=== PATIENT | female | born 1965 | race Caucasian/White ===

== ENCOUNTER → 2017-09-17 16:17 | Outpatient (CLI) | payer OTHER, SELFPAY ==
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
== END ==
PROVIDERS: PCP Family Medicine; Visit Provider Family Medicine
DX: M25.512 Pain in left shoulder (principal); M89.8X1 Other specified disorders of bone, shoulder
CPT/HCPCS: 73010; 73030

== ENCOUNTER → 2017-10-19 08:54 | Outpatient (POV) | payer OTHER, SELFPAY ==
[2017-10-19 09:08] VITALS: BP 168/76; PULSE 68; RESP 20; O2SAT 99; BMI 25.8
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
== END ==
PROVIDERS: PCP Family Medicine; Visit Provider Clinical Nurse Specialist Family Health
DX: M79.1 Myalgia (principal)
CPT/HCPCS: 99202

== ENCOUNTER → 2017-12-13 09:05 | Outpatient (POV) | payer OTHER, SELFPAY ==
[2017-12-13 09:11] VITALS: BP 147/81; PULSE 81; RESP 18; TEMP 36.6; O2SAT 99; BMI 25.8
--- NOTE | 2017-12-13 09:48 | HMH.PAINSOAP ---
[facility] Pain Management SOAP Note Subjective:: patient is a pleasant 52-year-old white female who presents today for follow-up after recent trigger point injections. Patient states that she did not get much relief from these. States most of her pain today is in her left trapezius. Patient does have palpable trigger points in this location. Patient states the Flexeril did not help her. Patient is not currently on any pain medication or muscle relaxers. Patient's tried and failed anti-inflammatories. Patient and I had a long discussion about medication and injection therapies. I believe it would be beneficial to find a care that includes both. Patient rates her pain a 6 out of 10 today. Patient still works full-time. ROS General: no recent weight change, no fever, no sleep disturbances Respiratory: no cough, no shortness of air, no recurring pulmonary infections Cardiovascular/Peripheral Vascular: No chest pain, No palpitations, no edema, no shortness of breath. Gastrointestinal: no incontinence, normal bowel movements reported Genitourinary: no incontinence Musculoskeletal: Myofascial pain Psychiatric: normal mood/ affect, [denies depression], [denies anxiety] Neurological: [denies weakness in extremities], [denies balance issues] Objective:: Physical Exam General: Alert and oriented x3, no acute distress, pleasant and cooperative, [on room air] Lungs: Resps E/U, Symmetrical chest expansion, Eyes: PERRL Musculoskeletal: Mobile trigger points in the left trapezius, Deep tendon reflexes normal, strength in upper and lower extremities [5/5], normal gait noted Neurological: speech clear, 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 3 times daily. I discussed with the patient regarding side effects and titration. Patient is going to be starting at 100 mg 1 p.o. nightly for a week and slowly titrate up. We will also start the patient on Robaxin 500 mg's 1 p.o. 4 times daily as needed. Patient has been educated on the side effects and is going to call the office if she has any issues. I encouraged the patient to take this at a time where she is not working. Also set of trigger point injections for the left trapezius I believe that this would be beneficial in combination with the medication. This note was dictated using voice recognition software and may contain errors or omissions
--- NOTE | 2017-12-13 09:53 | P.CONS_ITS ---
[facility] Pain Management SOAP Note Subjective:: patient is a pleasant 52-year-old white female who presents today for follow-up after recent trigger point injections. Patient states that she did not get much relief from these. States most of her pain today is in her left trapezius. Patient does have palpable trigger points in this location. Patient states the Flexeril did not help her. Patient is not currently on any pain medication or muscle relaxers. Patient's tried and failed anti- inflammatories. Patient and I had a long discussion about medication and injection therapies. I believe it would be beneficial to find a care that includes both. Patient rates her pain a 6 out of 10 today. Patient still works full-time. ROS General: no recent weight change, no fever, no sleep disturbances Respiratory: no cough, no shortness of air, no recurring pulmonary infections Cardiovascular/Peripheral Vascular: No chest pain, No palpitations, no edema, no shortness of breath. Gastrointestinal: no incontinence, normal bowel movements reported Genitourinary: no incontinence Musculoskeletal: Myofascial pain Psychiatric: normal mood/ affect, [denies depression], [denies anxiety] Neurological: [denies weakness in extremities], [denies balance issues] Objective:: Physical Exam General: Alert and oriented x3, no acute distress, pleasant and cooperative, [ on room air] Lungs: Resps E/U, Symmetrical chest expansion, Eyes: PERRL Musculoskeletal: Mobile trigger points in the left trapezius, Deep tendon reflexes normal, strength in upper and lower extremities [5/5], normal gait noted Neurological: speech clear, metal checker 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 3 times daily. I discussed with the patient regarding side effects and titration. Patient is going to be starting at 100 mg 1 p.o. nightly for a week and slowly titrate up. We will also start the patient on Robaxin 500 mg's 1 p.o. 4 times daily as needed. Patient has been educated on the side effects and is going to call the office if she has any issues. I encouraged the patient to take this at a time where she is not working. Also set of trigger point injections for the left trapezius I believe that this would be beneficial in combination with the medication. This note was dictated using voice recognition software and may contain errors or omissions
--- NOTE | 2017-12-13 16:12 | PC.NURSE ---
called in Rx for Robaxin 500mg QIDPrn and Gabapentin 100mg TID with no refills
== END ==
PROVIDERS: PCP Family Medicine; Visit Provider Clinical Nurse Specialist Family Health
DX: M79.1 Myalgia (principal)
CPT/HCPCS: 99212

== ENCOUNTER → 2018-02-15 09:20 | Outpatient (POV) | payer OTHER, SELFPAY ==
[2018-02-15 09:26] VITALS: BP 138/82; PULSE 73; RESP 18; O2SAT 98; BMI 25.1
--- NOTE | 2018-02-15 09:37 | P.CONS_ITS ---
[facility] Pain Management SOAP Note Subjective:: Is a pleasant 52-year-old white female who presents today for follow-up after left upper trapezius trigger point injections. Patient states she is doing extremely well she rates her pain 80% improved. Patient would like one more round of trigger points in order to get full relief. Patient rates her pain a 3 out of 10 today. Mostly in the left upper trapezius area. Patient is continuing to work full-time and doing quite well. ROS General: no recent weight change, no fever, no sleep disturbances Respiratory: no cough, no shortness of air, no recurring pulmonary infections Cardiovascular/Peripheral Vascular: No chest pain, No palpitations, no edema, no shortness of breath. Gastrointestinal: no incontinence, normal bowel movements reported Genitourinary: no incontinence Musculoskeletal: Myofascial pain Psychiatric: normal mood/ affect Neurological: [denies weakness in extremities], [denies balance issues] Objective:: Physical Exam General: Alert and oriented x3, no acute distress, pleasant and cooperative, [ on room air] Lungs: Resps E/U, Symmetrical chest expansion, Eyes: PERRL Musculoskeletal: Palpable trigger points left upper trapezius area, deep tendon reflexes normal, strength in upper and lower extremities [5/5], normal gait noted Neurological: speech clear, 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 I believe that this would be beneficial given the efficacy of the last round of injections. I will follow-up with the patient after this and reassess her symptoms at that time. This note was dictated using voice recognition software and may contain errors or omissions
== END ==
PROVIDERS: PCP Family Medicine; Visit Provider Clinical Nurse Specialist Family Health
DX: M79.1 Myalgia (principal)
CPT/HCPCS: 99212

== ENCOUNTER → 2018-03-22 10:30 | Outpatient (POV) | payer OTHER, SELFPAY ==
[2018-03-22 10:51] VITALS: BP 131/80; PULSE 65; RESP 18; O2SAT 98; BMI 24.7
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
== END ==
PROVIDERS: PCP Family Medicine; Visit Provider Clinical Nurse Specialist Family Health
DX: M79.1 Myalgia (principal)
CPT/HCPCS: 99213

== ENCOUNTER → 2018-03-31 10:57 | Outpatient (POV) | payer OTHER, SELFPAY | PROVIDERS: Visit Provider Dentist | DX: Z00.00 Encounter for general adult medical examination without abnormal findings (principal) ==

== ENCOUNTER → 2018-04-04 12:50 | Outpatient (POV) | payer OTHER, SELFPAY ==
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
[2018-04-04 13:27] VITALS: BP 138/76; PULSE 70; RESP 18; O2SAT 98; BMI 24.7
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
== END ==
PROVIDERS: Visit Provider Clinical Nurse Specialist Family Health
DX: M79.1 Myalgia (principal)
CPT/HCPCS: 99213

== ENCOUNTER → 2020-11-22 08:09 | Outpatient (CLI) | payer OTHER, SELFPAY ==
[2020-11-22 08:37] LABS: Basophils # 0.1 K/mm3 (0-0.2); Basophils % 0.9 % (0.1-2.0); Eosinophils # 0.2 K/mm3 (0.0-0.4); Eosinophils % 1.8 % (0.1-12.0); Hematocrit 43.7 % (37.0-47.0); Hemoglobin 14.3 g/dL (12.2-16.2); Lymphocytes # 3.2 K/mm3 (0.7-4.5); Lymphocytes % 38.2 % (10-50); Mean Corpuscular HGB Conc 32.8 g/dL (31.8-35.4); Mean Corpuscular Volume 97.4 fl (81-99); Mean Platelet Volume 7.9 fl (7.4-10.4); Monocytes # 0.6 K/mm3 (0.1-1.0); Neutrophils # 4.4 K/mm3 (1.8-7.8); Neutrophils % 52.2 % (37.0-80.0); Platelet Count 246 K/mm3 (142-424); Red Blood Count 4.48 M/mm3 (4.20-5.40); White Blood Count 8.4 K/mm3 (4.8-10.8)
[2020-11-22 09:05] LABS: Chloride 108 mmol/L (98-107)
[2020-11-22 09:06] LABS: Potassium 4.7 mmoL/L (3.5-5.1); Sodium 140 mmol/L (136-145)
[2020-11-22 09:08] LABS: Alanine Aminotransferase 7 U/L (12-78); Albumin Level 4.4 g/dl (3.5-5.0); Albumin/Globulin Ratio 1.6 (1.1-1.8); Alkaline Phosphatase 72 U/L (38-126); Anion Gap 11.7 mEq/L (5-15); Aspartate Amino Transferase 17 U/L (14-36); Bilirubin,Total 0.5 mg/dl (0.2-1.3); Blood Urea Nitrogen 13 mg/dl (7-17); Carbon Dioxide 25 mmol/L (22.0-30.0); Cholesterol 233 mg/dl (140-200); Estimated Glomerular Filt Rate 74 ml/min (>60); GFR (African American) 90 ML/MIN (>60); Globulin 2.7 g/dL (1.3-3.2); Total Protein,Serum 7.1 g/dl (6.3-8.2); Triglycerides 107 mg/dl (30-150); VLDL Cholesterol 21 mg/dL (0-40)
[2020-11-22 09:09] LABS: Calcium 9.9 mg/dl (8.4-10.2); Chol/HDL Ratio 5.7 (1-3.5); Glucose 96 mg/dl (74-100); HDL Cholesterol 41 mg/dl (40-60)
[2020-11-22 09:38] LABS: Thyroid Stimulating Hormone 2.73 uIU/mL (0.465-4.68)
== END ==
PROVIDERS: Visit Provider Family Medicine
DX: G43.909 Migraine, unspecified, not intractable, without status migrainosus (principal)
CPT/HCPCS: 36415; 80053; 80061; 84443; 85025

== ENCOUNTER 2021-05-12 17:49 | Emergency (ER) | payer OTHER, SELFPAY ==
[2021-05-12 18:50] VITALS: BP 180/88; PULSE 78; RESP 20; TEMP 36.6; O2SAT 100; BMI 21.9
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
--- NOTE | 2021-05-12 19:51 | HMH.EDUTC ---
[facility] [place] Clinical Impression: Instability of right knee joint, Effusion, right knee Right knee pain Qualifiers: Chronicity: acute Qualified Code(s): M25.561 - Pain in right knee Disposition: Home, Self-Care Condition on Discharge: Good Instructions: How to Use Crutches, Knee Sprain, DI for Knee Sprain, How to Use a Knee Immobilizer Additional Instructions: Rest the extremity, apply ice for 15 minutes as tolerated three or four times per day, Elevate the extremity as tolerated while you are resting. Take ibuprofen for pain. I sent in a prescription to your pharmacy. Follow up with Dr. Thomas (orthopedics). I put in a referral but you need to call his office and schedule an appointment. Follow up with your regular doctor. GO TO THE ER FOR ANY WORSENING SYMPTOMS Prescriptions: Ibuprofen [Ibuprofen 600mg Tablet] 600 mg PO Q6HP PRN #30 tab PRN Reason: Mild Pain Transmission Status: Received by [id number] Referrals: Ochoa Levine MD [Primary Care Provider] - Forms: Work/School Release Time of Disposition: 19:57 Medical Decision Making - Medical Records Medical records reviewed: No: I reviewed the patient's medical records. - Massimo Inquiry Pt receiving controlled substance: No Vital Signs: 05/12/21 18:50 05/12/21 20:04 Temperature 97.9 F 97.9 F Temperature Source Oral Pulse Rate 78 Pulse Rate [Left Brachial] 78 Respiratory Rate 20 20 Blood Pressure 180/88 H Blood Pressure [Left Arm] 180/88 H Blood Pressure Mean [Left Arm] 118 Blood Pressure Source [Left Arm] Automatic Cuff Blood Pressure Position [Left Arm] Sitting 02 Sat by Pulse Oximetry 100 Oxygen Delivery Method Room Air - Radiology Data #1 Image(s): Knee Image Reviewed: Yes I reviewed the patient's radiology image, Yes I have reviewed radiologist's interpretation Preliminary Findings: No Fracture Seen PROCEDURE INFORMATION: Exam: XR Right Knee Exam date and time: 05/12/2021 7:04 PM Age: 55 years old Clinical indication: Injury or trauma; Fall; Blunt trauma; Knee; Right; Additional info: Fell TECHNIQUE: Imaging protocol: XR Right knee. Views: 3 views. COMPARISON: No relevant prior studies available. FINDINGS: Bones/joints: No acute fracture or dislocation. Soft tissues: Anteromedial soft tissue edema. IMPRESSION: 1. No acute fracture or dislocation. 2. Anteromedial soft tissue edema. [facility] [place] HPI - General Stated complaint: WC 05/12/21 fall, rt knee pain Time Seen by Provider: 05/12/21 18:55 Mode of Arrival: Ambulatory Source of Information: Patient Limitations: No Limitations Description of Symptoms (Recalled from Triage Doc. by RN): PATIENT C/O RIGHT KNEE PAIN AFTER SLIPPING ON WET AREA AND FALLING IN COOLER AT WORK AT [employer] THIS AM HEENT Symptoms (Recalled from RN notes): No Resp Symptoms (Recalled from RN notes): No Skin Symptoms (Recalled from RN notes): No MS Symptoms (Recalled from RN notes): Yes Functional Status (Recalled from RN notes): WNL - History of Present Illness Provider Complaint: She was at her work today when she fell. She was walking in the cooler with a heavy crate of drinks when she stepped on a wet spot on the floor. This caused her right foot to slip behind her and she came down on her right knee. This also hyperflexed her left knee. Since then she has had right knee pain and swelling. She also hit her left elbow and left knee, but she states these are not hurting her. Walking and bearing weight on her right knee makes her pain much worse. She also states that her right knee has felt unstable since her fall. She denies having any knee pain or issues before she fell. - Related Data Home Medications Medication Instructions Recorded Confirmed Aspirin [Aspirin 81mg EC Tab] 81 mg PO DAILY 10/19/17 09/18/19 Previous Rx's Medication Instructions Rec
[2021-05-12 20:04] VITALS: BP 180/88; PULSE 78; RESP 20; TEMP 36.6; O2SAT 100
== END 2021-05-12 20:09 | disposition home or self-care (01) ==
PROVIDERS: Emergency Provider Nurse Practitioner Family; PCP Family Medicine
DX: M25.461 Effusion, right knee (principal); R26.89 Other abnormalities of gait and mobility; W01.0XXA Fall on same level from slipping, tripping and stumbling without subsequent striking against object, initial encounter; Y92.69 Other specified industrial and construction area as the place of occurrence of the external cause; Y99.0 Civilian activity done for income or pay; F17.210 Nicotine dependence, cigarettes, uncomplicated
CPT/HCPCS: 29505; 73562; 99202; G0463

== ENCOUNTER 2021-05-23 15:28 | Outpatient (RCR) | payer OTHER, SELFPAY | END 2021-05-23 16:27 | disposition home or self-care (01) | LOC: PT 15:28 | PROVIDERS: Visit Provider Orthopaedic Surgery | DX: S83.511A Sprain of anterior cruciate ligament of right knee, initial encounter (principal); M25.461 Effusion, right knee | CPT/HCPCS: 97760 ==

== ENCOUNTER 2021-09-09 16:01 | Outpatient (RCR) | payer OTHER, SELFPAY | END 2021-09-09 17:00 | disposition home or self-care (01) | LOC: PT 16:01 | PROVIDERS: Visit Provider Orthopaedic Surgery | DX: M17.11 Unilateral primary osteoarthritis, right knee (principal) ==

== ENCOUNTER 2021-10-03 13:17 | Outpatient (RCR) | payer OTHER, SELFPAY ==
--- NOTE | 2021-10-03 14:07 | HMH.PTOPEV ---
PT Outpatient Evaluation Rehab PT Outpatient Evaluation Start: 10/03/21 13:28 Freq: Status: Active Protocol: Document 10/03/21 13:57 TJ (Rec: 10/03/21 14:07 TJ [id number]) Electronically Signed By Lincoln Bal, PT 10/03/21 13:57 Outpatient Therapy Subjective History Subjective History Pt reports injury to Right knee on 05/12/21. Pt reports falling while carrying a case of Natalia[employer], 'I slipped and fell in the cooler at work, my right knee connie buckled under me, and my left leg connie slid out in front.' Pt reports medial aspect right knee pain since injury, as well as swelling, stiffness, buckling episodes. Pt reports recent Xrayhas revealed OA, and 'I'm not sure what the MRI showed'. Chief Complaint Pain,Stiff,Swelling,Gives out/ Unstable,Weakness Symptom Type Ache,Sharp,Dull,Stabbing Symptoms Relieved By Rest/Positioning,Ice, Prescription Meds Symptoms Aggravated By Standing,Physical Activity, Walking Prior Functional Limitations None Current Functional Limitations Housework,Standing,Squatting, Walking,Stairs Symptom Description Constant but Variable Level of pain today (0-10) 5 Pain scale - at its best (0-10) 4 Pain scale - at its worst (0-10) 10 Hip/Knee Eval Gait Observation General Gait Pattern Observation Antalgic Gait Palpation Tenderness right Knee Palpation Finding Tenderness Knee Palpation Overall Comment 3/4 MCL, 3/4 medial jt line, 2 /4 medial popiteal space, 1/4 lateral jt line MMT Hip Flexion Strength Grade 4 Good Hip Abduction Strength Grade 4- Good- Hip Adduction Strength Grade 3+ Fair+ Hip Extension Strength Grade 4- Good- Hip External Rotation Strength Grade 4- Good- Hip Internal Rotation Strength Grade 4- Good- Knee Extension Strength Grade 4 Good Knee Flexion Strength Grade 4- Good- ROM Knee Flexion Active Range of Motion ( 0-124 degrees) Knee ROM Limitations Soft Tissue Tightness,Pain Special Tests Knee Valgus Stress Test Positive Right Knee Juanis Test Positive Right Outpatient Therapy Assessment Impairments Problems/Impairmments Palpation Tenderness,Impaired Range of Motion,Impaired
== END 2021-10-03 13:20 | disposition home or self-care (01) ==
LOC: PT 13:17
PROVIDERS: Visit Provider Orthopaedic Surgery
DX: M17.11 Unilateral primary osteoarthritis, right knee (principal)
CPT/HCPCS: 97163

== ENCOUNTER → 2022-03-12 17:57 | Outpatient (CLI) | payer OTHER, SELFPAY | PROVIDERS: PCP Family Medicine; Visit Provider Orthopaedic Surgery | DX: Z79.899 Other long term (current) drug therapy (principal) | CPT/HCPCS: 80305 ==

== ENCOUNTER → 2022-05-29 09:24 | Outpatient (CLI) | payer OTHER, SELFPAY ==
--- NOTE | 2022-05-29 09:36 | XR_ITS ---
FINAL REPORT CLINICAL HISTORY: knee pain..fall last year COMPARISON: 05/12/2021 FINDINGS: Right knee Three views were obtained. There is no acute fracture or dislocation. No joint effusion is identified. The joint spaces appear normal. No soft tissue abnormality is identified. IMPRESSION: No acute process. Reviewed, Interpreted and Dictated by Aman Mitchell III, MD Transcribed by Wendy Adame Authenticated and . [facility]
== END ==
PROVIDERS: PCP Family Medicine; Visit Provider Orthopaedic Surgery
DX: M25.561 Pain in right knee (principal)
CPT/HCPCS: 73562

== ENCOUNTER 2022-07-22 10:30 | Outpatient (RCR) | payer OTHER, SELFPAY ==
--- NOTE | 2022-06-17 15:49 | HMH.PTOPEV ---
PT Outpatient Evaluation Rehab PT Outpatient Evaluation Start: 06/17/22 15:32 Freq: Status: Active Protocol: Document 06/17/22 15:35 MARGARET (Rec: 06/17/22 15:49 PHORTHERESA [id number]) E-signed By Chase Gaytan, PT Outpatient Therapy Subjective History Subjective History This is the initial PT eval for Capri Santiago 56 yowf who presents with R knee pain x ~ 1 yr S/P fall at work. She reports RIVERA of L LE slipped out from under her and extended forward while her R knee was bent and caught under her body when she fell. She c /o pain on the medial and anterior R knee jt which is much worse after standin or walking for long periods. She states, When I'm at work standing on it all day long it really hurts bad and swells up. She reports delay in treatment due to problems with her worker's comp claim, but pain has remained mostly constant since initial injury. She reports no significant PMH. Chief Complaint Pain,Swelling Symptom Type Ache,Sharp Symptoms Relieved By Nothing Symptoms Aggravated By Standing,Walking Prior Functional Limitations None Current Functional Limitations Standing,Squatting,Walking Level of pain today (0-10) 4 Pain scale - at its worst (0-10) 10 Hip/Knee Eval Gait Observation General Gait Pattern Observation No Deviations/Normal Palpation Tenderness right Knee Palpation Finding Tenderness Knee Palpation Overall Comment med jt line, pat tendon, popliteal space MMT Hip Flexion Strength Grade 5 Normal Hip Abduction Strength Grade 5 Normal Hip Adduction Strength Grade 5 Normal Hip Extension Strength Grade 5 Normal Gluteus Arturo Strength Grade 5 Normal Hip External Rotation Strength Grade 5 Normal Hip Internal Rotation Strength Grade 5 Normal Knee Extension Strength Grade 5 Normal Knee Flexion Strength Grade 5 Normal ROM Knee Extension Active Range of Motion ( 0 degrees) Knee Flexion Active Range of Motion ( 0-137 degrees) Special Tests Hip Sindhu Test Negative Left,Negative Right Sciatic Nerve Tension Test
--- NOTE | 2022-07-20 15:46 | HMH.RHREAS ---
Rehab Reassessment Rehab OP Re-assessment Start: 07/20/22 15:41 Freq: Status: Active Protocol: Document 07/20/22 15:42 MARGARET (Rec: 07/20/22 15:46 PHORTHERESA [id number]) E-signed By Chase Gaytan, PT Rehab Re-assessment Subjective Subjective Pt reports pain at rest 3/10 in R medial knee, at worst 7/ 10. If I am up on it all day at work, it's a whole lot worse. Objective Objective Notes MMT and AROM of R LE remain WNL throughout as they wer on initial evaluation. TTP: / medial R knee jt line . Assessment Progress Assessment Progressing as Expected Assessment Notes Pt continues to show significant pain with prolonged standing or walking, but no problems with strength or ROM at this time. She also remains somewhat tender with palpation of the medial R knee joint. She has limited relief of pain with phonophoresis and iontophoresis. Patient goals met ST,3,[address],4 LT,2,3,4,5,6 Revised Goals none Plan Plan Continue per initial POC. Frequency of Therapy 2 x/wk Duration of therapy 4 wks Time and Billing Re-Eval Time 16 Re-Eval Billing Units 1 PHYSICIAN CERTIFICATION: I certify the specified therapy services for Capri Santiago are required, authorized, and reviewed every 30 days.
== END 2022-07-22 10:35 | disposition home or self-care (01) ==
LOC: PT 10:30
PROVIDERS: Visit Provider Orthopaedic Surgery
DX: M25.561 Pain in right knee (principal)
CPT/HCPCS: 97010; 97014; 97033; 97035; 97110; 97163; 97164; G0283

== ENCOUNTER → 2023-02-10 08:09 | Outpatient (CLI) | payer OTHER, SELFPAY ==
--- NOTE | 2023-02-10 08:15 | CT_ITS ---
FINAL REPORT TECHNIQUE: Axial images were obtained from the lung apex to the mid abdomen by computed tomography. This study was performed with techniques to keep radiation doses as low as reasonably achievable (ALARA). Individualized dose reduction techniques using automated exposure control or adjustment of mA and/or kV according to the patient's size were employed. CLINICAL HISTORY: TOBACCO USE, smoker 1 ppd x 30 years family hx of lung cancer FINDINGS: CHEST CT LOW DOSE CTDI vol (mGy): 2.90 DLP (mGy-cm): 98.73 There is no axillary adenopathy. There is no hilar or mediastinal adenopathy. The heart is normal in size. There is no pericardial or pleural effusion. There is mild scarring and mild emphysema. There are several small less than 5 mm pulmonary nodules. There is a 3 mm nodule in the superior segment of the right lower lobe well seen on image 26. There is a 3 mm nodule in the posterior right lower lobe well seen on image 51. Multiple calcified granulomas are identified. Limited images of the upper abdomen are unremarkable. IMPRESSION: Several pulmonary nodules. Lung RADS category 2. Recommend 12 month follow-up low-dose chest CT. Reviewed, Interpreted and Dictated by Aman Mitchell III, MD Transcribed by Wendy Adame Authenticated and [facility]
--- NOTE | 2023-02-10 08:15 | MM_ITS ---
PROCEDURE INFORMATION: Exam: MG Bilateral Screening 3D Mammography Exam date and time: 02/10/2023 8:08 AM Age: 57 years old Clinical indication: Screening. No family history of breast cancer. TECHNIQUE: Imaging protocol: Bilateral Screening tomosynthesis and 2D mammography including computer-aided detection (CAD) when performed. COMPARISON: No relevant prior studies available.If prior mammograms are provided, I am happy to add an addendum. FINDINGS: MAMMOGRAPHY: Breast composition: There are scattered areas of fibroglandular density. Mass: Scattered bilateral sub cm oval circumscribed masses. No dominant suspicious mass. Architectural distortion: None. Calcifications: No suspicious calcifications. Asymmetric density: None. Skin thickening: None. Axillary adenopathy: None. IMPRESSION: Scattered bilateral sub cm oval circumscribed masses considered benign on screening mammography. No mammographic evidence of malignancy. Annual screening is recommended unless otherwise clinically indicated. ASSESSMENT: BI-RADS Category 2: Benign
== END ==
PROVIDERS: PCP Family Medicine; Visit Provider Nurse Practitioner Family
DX: Z12.31 Encounter for screening mammogram for malignant neoplasm of breast (principal); Z87.891 Personal history of nicotine dependence; Z12.2 Encounter for screening for malignant neoplasm of respiratory organs
CPT/HCPCS: 71271; 77063; 77067

== ENCOUNTER 2024-03-08 09:44 | Outpatient (CLI) | payer OTHER, SELFPAY ==
--- NOTE | 2024-03-08 09:48 | CT_ITS ---
FINAL REPORT TECHNIQUE: Thin section axial images were obtained from the lung apices to the upper abdomen by computed tomography. Reformatted images were obtained and reviewed. This study was performed with techniques to keep radiation doses al low as reasonably achievable (ALARA). Individualized dose reduction techniques using automated exposure control or adjustment of mA and/or kV according to the patient's size were employed. CLINICAL HISTORY: HX OF NICOTINE current smoker 1ppd x30 years COMPARISON: 02/10/2023 FINDINGS: CHEST CT LOW DOSE 59-year-old female, current smoker, 20-xtxj-xbij history. CTDI vol (mGy): 2.9 DLP (mGy-cm): 96.38 There is no axillary adenopathy. There are multiple calcified right paratracheal and subcarinal and right hilar nodes present. The heart is normal in size. There is no pericardial or pleural effusion. There is mild emphysema and mild pulmonary scarring. Lung window images demonstrate a nodule, noncalcified, in the superior segment of the right lower lobe, measuring 3 mm, stable. There is a posterior right lower lobe nodule as well, 4 mm in size, best seen on image #51, essentially stable. No new focal nodules or masses are noted. Limited images of the upper abdomen are unremarkable. IMPRESSION: Lung-RADS category 2. Recommend 12 month follow up low dose chest CT. Reviewed, Interpreted and Dictated by Bandar Linda MD Transcribed by Terri Witt Authenticated and [facility]
== END 2024-03-08 23:59 | disposition home or self-care (01) ==
LOC: RAD 09:44
PROVIDERS: PCP Nurse Practitioner Family; Visit Provider Nurse Practitioner Family
DX: F17.210 Nicotine dependence, cigarettes, uncomplicated (principal)
CPT/HCPCS: 71271

== ENCOUNTER 2025-07-27 12:50 | Outpatient (CLI) | payer OTHER, SELFPAY ==
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
--- NOTE | 2025-07-27 12:51 | MM_ITS ---
PROCEDURE INFORMATION: Exam: MG Bilateral Screening 3D Mammography Exam date and time: 07/27/2025 12:57 PM Age: 60 years old Clinical indication: Screening examination TECHNIQUE: Imaging protocol: Bilateral Screening tomosynthesis and 2D mammography including computer-aided detection (CAD) when performed. COMPARISON: MG MM DIG SCREENING MAMM BI W/CAD 02/10/2023 8:08 AM FINDINGS: MAMMOGRAPHY: Breast composition: There are scattered areas of fibroglandular density. Mass: No suspicious masses. Architectural distortion: None. Calcifications: No suspicious calcifications. Asymmetric density: None. Skin thickening: None. Axillary adenopathy: None. IMPRESSION: No mammographic evidence of malignancy. Annual screening is recommended unless otherwise clinically indicated. ASSESSMENT: BI-RADS Category 1: Negative.
--- NOTE | 2025-07-27 12:51 | CT_ITS ---
FINAL REPORT CLINICAL HISTORY: smoker 1/2 ppd x 35 years COMPARISON: 03/08/2024 FINDINGS: CT CHEST LOW DOSE SCREENING HISTORY: Screening exam for lung cancer. 60-year-old male, current smoker, 11-ubtl-bqcw history. DOSE: CTDI vol: 2.90 mGy, DLP: 102.38 mGy*cm TECHNIQUE: Axial CT without IV contrast administration using low dose protocol. This study was performed with techniques to keep radiation doses as low as reasonably achievable, (ALARA). Individualized dose reduction techniques using automated exposure control or adjustment of mA and/or kV according to the patient's size were employed. No acute lung disease is present. There is a 2 mm right lower lobe nodule best seen on image #37 of series 4, stable. There is a 4 mm posterior right lower lobe nodule best seen on image #55, with probable central calcification. There is evidence of remote granulomatous disease. There is a lingular subpleural nodule best seen on image #45 measuring 4 mm in size, without definite calcification. No pleural or pericardial effusion is seen. No adenopathy or mass lesion is present. IMPRESSION: Stable nodules as described above. LUNG RADS CATEGORY 2 RECOMMENDATION: 12 month LDCT follow up Reviewed, Interpreted and Dictated by Benson Juárez MD Transcribed by Terri Witt Authenticated and [facility]
--- OUTSIDE RECORDS SUMMARY | 2025-07-27 12:53 | XMS_ITS | Encounter Summary ---
Author Organization [employer] ([place], [place], [place], [place], [place]) Address [address] [place] [address] Care Team Providers Care Miscellaneous Machine Operator Name Role Phone Unavailable Primary Care Provider Unavailabl e Encounter Details Date Type Department Care Team (Late st Contact Info) Description 09/18/2019 Transcribed Document [facility] Family Medicine [facility] [address] ProviderTami MD [address] [place] [address] Social History Tobacco Use Types Packs/Day Years Used Date Smoking Tobacco: Never Assessed Comments Unknown Sex and Gender Information Value Date Recorded Sex Assigned at Female 02/05/2022 4:56 PM CDT Legal Sex Female 6:56 PM CDT Gender Identity Female 02/05/2022 4:56 PM CDT Sexual Orientation Not on file documented as of this encounter Miscellaneous Notes * Cerner Conversion Note - Historical ProviderMD - 09/18/2019 8:35 PM 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
--- OUTSIDE RECORDS SUMMARY | 2025-07-27 12:53 | XMS_ITS | Encounter Summary ---
Author Organization [employer] ([place], [place], [place], [place], [place]) Address [address] [place] [address] Care Team Providers Care Licensed Sales Assistant Name Role Phone Unavailable Primary Care Provider Unavailabl e Encounter Details Date Type Department Care Team (Late st Contact Info) Description 09/18/2019 Transcribed Document [facility] Family Medicine [facility] [place] [address] ProviderTami MD [address] [place] [address] Social History Tobacco Use Types Packs/Day [...] Conversion Note - Historical ProviderMD - 09/18/2019 7:16 PM END USER SUPPORT SPECIALIST ED Assessment Entered On: 09/18/2019 19:37 EST Performed On: 09/18/2019 19:35 EST by Zackery Sanchez RN ED Quick Look Assessment Level of Consciousness : Alert, Awake Affect/Behavior : Appropriate, Calm Orientation : Oriented x 4 Zackery Sanchez RN - 09/18/2019 19:35 EST ED General-Functional Assess Information Obtained From : Patient Communication Barrier : None Primary Language : Salvadorean Any Spiritual/Cultural Needs or Requests : No Currently in Unsafe Situation : No Zackery Sanchez RN - 09/18/2019 19:35 EST Social Habits Smoking Status : Never (less than 100 in lifetime; none in last 30 days) Smokeless Tobacco Status : Never Desires Tobacco Cessation Calc : 0 Zackery Sanchez RN - 09/18/2019 19:35 EST Social History (As Of: 09/18/2019 19:37:38 EST) Neurologic ASMT, ED Neurologic Assessment WDL : WDL with exceptions (Comment: pt here c/o headache with left arm numbness and tingling equal strength bialterally no other deficit [Zackery Sanchez RN - 09/18/2019 19:35 EST] ) [place] Coma Scale Link : Open [facility] NIH Stroke Scale Link : Open Zackery Sanchez RN - 09/18/2019 19:35 EST Carolann Coma Carolann Best Motor Response : Obey commands Carolann Best Verbal Response : Oriented Carolann Eye Opening Response : Spontaneous [place] Coma Score : 15 Zackery Sanchez RN - 09/18/2019 19:35 EST NIH Stroke Scale *Q NIH Assessment Interval : Baseline Time of Assessment : 09/18/2019 19:36 EST NIH Level of Consciousness (1A) : Alert NIH LOC Questions (1B) : Answers both questions correctly NIH LOC Commands (1C) : Performs both tasks correctly NIH Best Gaze (2) : Normal NIH Facial Palsy (4) : Normal symmetrical movements NIH Motor Arm, Left (5A) : No drift NIH Motor Arm, Right (5B) : No drift NIH Motor Leg, Left (6A) : No drift NIH Motor Leg, Right (6B) : No drift NIH Sensory (8) : Aidg-ly-ucpbexyn sensory loss NIH Best Language (9) : No aphasia NIH Dysarthria (10) : Normal Extinction and Inattention (11) : No abnormality Zackery Sanchez RN - 09/18/2019 19:35 EST documented in this encounter Plan of Treatment Not on file documented as of this encounter Visit Diagnoses Not on filedocumented in this encounter
--- OUTSIDE RECORDS SUMMARY | 2025-07-27 12:53 | XMS_ITS | Encounter Summary ---
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 History source: Patient. Arrival mode: Private vehicle. History limitation: None. Additional information: Chief Complaint from Nursing Triage Note : Chief Complaint 09/18/2019 19:17 EST Chief Complaint pt c/o SCHWARTZ x 3 days on right side of head with numbness on left (resolved now), yesterday evening caused disorientation per spouse, N/V . History of Present Illness This is a 54-year-old female with a past medical history significant for complicated migraines with left-sided paresthesia/weakness who presents to the emergency department for migraine that is been ongoing since noon yesterday. She has had associated photophobia, nausea and vomiting which is typical for her migraine symptoms. Usually she can take Excedrin Migraine and the symptoms resolved, however that has not worked for her in this particular episode. She denies any recent illnesses, no fevers, urinary symptoms, no chest pain or abdominal pain. She did initially have some left-sided paresthesia, but that has resolved. Does not take any anticoagulation. She is previously followed in the past with her neurologist for these migraines, but her neurologist has retired and she has not obtained new consult. Not sudden in onset. Review of Systems Additional review of systems information: 10 point review of systems reviewed and negative except as stated in history of present illness . Health Status Allergies: Allergic Reactions (Selected) No Known Medication Allergies . Medications: (Selected) Inpatient Medications Ordered Benadryl: 50 mg, IV Push, 1-Time Reglan: 10 mg, IV Push, 1-Time Toradol: 30 mg, IV Push, 1-Time dexamethasone: 10 mg, IV Push, 1-Time , per nurse's notes. Immunizations: Per nurse's notes. Past Medical/ Family/ Social History Medical history Reviewed as documented in chart. Surgical history: Reviewed as documented in chart. Family history: Reviewed as documented in chart. Social history: Reviewed as documented in chart. Problem list: No qualifying data available , per nurse's notes. Physical Examination Vital Signs Vital Signs/Vital Measures 09/18/2019 19:17 EST Systolic Blood Pressure 133 mmHg Diastolic Blood Pressure 71 mmHg Temperature Source Oral Temperature Mode Fahrenheit Temperature, Fahrenheit 98.2 Deg F Clinical Temperature, C 36.8 Deg C Peripheral Pulse Rate 72 bpm Respiratory Rate 15 Breaths/Min Oxygen Saturation 98 % Oxygen Therapy Mode Room air . Per nurse's notes. General: Alert, no acute distress. Skin: Warm, dry. Head: Normocephalic. Neck: Supple. Eye: Pupils are equal, round and reactive to light, extraocular movements are intact. Ears, nose, mouth and throat: Oral mucosa moist. Cardiovascular: Regular rate and rhythm, No murmur. Respiratory: Lungs are clear to auscultation, respirations are non-labored, breath sounds are equal. Gastrointestinal: Soft, Nontender, Non distended. Neurological: Alert and oriented to person, place, time, and situation, No focal neurological deficit observed, normal speech observed, normal coordination observed. Psychiatric: Cooperative. Medical Decision Making Documents reviewed: Emergency department nurses' notes, prior records. Notes: Exam, history, evaluation is inconsistent with emergent causes of headache such as CVA, subarachnoid hemorrhage, acute intracranial infection/abscess, meningitis, encephalitis, mass, trauma. Patient is feeling much better with migraine cocktail here. Given strict return precautions and discharged home. Patient is alert and oriented, expresses clear understanding and willingness to adhere to plan, return precautions.. Impression and Plan Diagnosis Headache - Discharge, Medical Plan Condition: Stable. Disposition: Discharged Admit/Transfer/Discharge: Discharge (Order): Start: 09/18/2019 20:34 EST, Discharge to: Home . Patient was given the following educational materials: Migraine Headache. Follow up with: ; JOYA HERNANDEZ Within 2 to 3 days. Counseled: Patient, Regarding diagnosis, Regarding diagnostic results, Regarding treatment plan, Patient indicated understanding of instructions. documented in this encounter Plan of Treatment Not on file documented as of this encounter Visit Diagnoses Not on filedocumented in this encounter
--- OUTSIDE RECORDS SUMMARY | 2025-07-27 12:53 | XMS_ITS | Encounter Summary ---
Author Organization [employer] ([place], [place], [place], [place], [place]) Address [address] [place] [address] Care Team Providers Care Junior Project Coordinator Name Role Phone Unavailable Primary Care Provider Unavailabl e Encounter Details Date Type Department Care Team (Late st Contact Info) Description 09/18/2019 Transcribed Document [facility] [place] Family Medicine [address] [place] [address] ProviderTami MD [address] [place] [id number] Social History Tobacco Use Types Packs/Day Years [...] - Historical ProviderMD - 09/18/2019 7:16 PM SAMPLER PICKUP [place] Suicide Severity Rating Scale (C-SSRS) Entered On: 09/18/2019 19:37 EST Performed On: 09/18/2019 19:35 EST by Zackery Sanchez RN [place] Suicide Severity Rating Scale (C-SSRS) CSSRS Past Month Wish to be : No CSSRS Past Month Suicidal Thoughts : No CSSRS Lifetime Suicide Behavior : No Suicide Severity Rating Score : 0 Suicide Severity Rating : No Additional Care Required at this time Zackery Sanchez RN - 09/18/2019 19:35 EST documented in this encounter Plan of Treatment Not on file documented as of this encounter Visit Diagnoses Not on filedocumented in this encounter
--- OUTSIDE RECORDS SUMMARY | 2025-07-27 12:53 | XMS_ITS | Encounter Summary ---
Author Organization [employer] ([place], [place], [place], [place], [place]) Address [address] [place] [address] Care Team Providers Care Water Fabricator Operator Name Role Phone Unavailable Primary Care Provider Unavailabl e Encounter Details Date Type Department Care Team (Late st Contact Info) Description 09/18/2019 Transcribed Document [facility] [place] Family Medicine [facility] [place] [address] ProviderTami MD [address] [place] [id number] Social History Tobacco Use Types Packs/Day [...] - Historical ProviderMD - 09/18/2019 7:16 PM MANAGER PROJECT ED Triage Entered On: 09/18/2019 19:21 EST Performed On: 09/18/2019 19:17 EST by Maria Isabel Loredo RN ED Triage Across the Room Chief Complaint : pt c/o SCHWARTZ x 3 days on right side of head with numbness on left (resolved now), yesterday evening caused disorientation per spouse, N/V Triage Date/Time : 09/18/2019 19:17 EST Maria Isabel Loredo RN - 09/18/2019 19:17 EST DCP GENERIC CODE Tracking Acuity : 3 - Urgent Tracking Group : [facility] ED Maria Isabel Loredo RN - 09/18/2019 19:17 EST Mode of Arrival : Ambulatory Transported to ED by : Private vehicle To Room Via : Ambulate Accompanied By : Spouse ED Vital Signs : Document Height & Weight : Document ED Allergies : Document ED Reason for Visit : Document Status : Hysterectomy Tetanus Immunization : Greater than 5 years Deputy General Counsel Needed : No Maria Isabel Loredo RN - 09/18/2019 19:17 EST Infectious Disease History Physical contact outside [place] in the last 30 days : No Infectious Disease History : Chicken pox/Shingles, Measles Tuberculosis Symptoms : Weight Loss, Other: body aches Maria Isabel Loredo RN - 09/18/2019 19:17 EST Vital Signs ED Temperature Source : Oral Temperature Mode : Fahrenheit Temperature, Fahrenheit : 98.2 Deg F ED Pain : Yes Clinical Temperature, C : 36.8 Deg C Oxygen Therapy Mode : Room air Peripheral Pulse Rate : 72 bpm Respiratory Rate : 15 Breaths/Min Systolic Blood Pressure : 133 mmHg Diastolic Blood Pressure : 71 mmHg Oxygen Saturation : 98 % Maria Isabel Loredo RN - 09/18/2019 19:17 EST Allergy (As Of: 09/18/2019 19:21:49 EST) Allergies (Active) No Known Medication Allergies Estimated Onset Date: Unspecified ; Created By: Maria Isabel Loredo RN; Reaction Status: Active ; Category: Drug ; Substance: No Known Medication Allergies ; Type: Allergy ; Updated By: Maria Isabel Loredo RN; Reviewed Date: 09/18/2019 19:21 EST Diagnosis Control ED (As Of: 09/18/2019 19:21:49 EST) Diagnoses(Active) SCHWARTZ - Headache Date: 09/18/2019 ; Diagnosis Type: Reason For Visit ; Confirmation: Complaint of ; Clinical Dx: SCHWARTZ - Headache ; Classification: Medical ; Clinical Service: Non-Specified ; Code: PNED ; Probability: 0 ; Diagnosis Code: [id number] Weakness Date: 09/18/2019 ; Diagnosis Type: Reason For Visit ; Confirmation: Complaint of ; Clinical Dx: Weakness ; Classification: Medical ; Clinical Service: Non-Specified ; Code: PNED ; Probability: 0 ; Diagnosis Code: [id number] ED Height and Weight Height Source : Stated Height Entry Format : [place] Height, Feet : 5 ft(Converted to: 152 cm, 60 Inch) Height, Inches : 5 Inch(Converted to: 0 ft 5 Inch, 12.70 cm) Clinical Height : 165.1 cm Weight Source, ED : Critical estimated dosing weight Weight Entry Format : [place] Weight, Pounds : 116 lb Clinical Dosing Weight : 52.73 kg Body Surface Area (BSA) : 1.57 m2 Body Mass Index : 19.3 kg/m2 [place] Body Weight (IBW) : 56.59 kg Maria Isabel Loredo RN - 09/18/2019 19:17 EST Pain Assessment Pain Assessment : Initial assessment Pain Scale Used : 0-10 Scale Maria Isabel Loredo RN - 09/18/2019 19:17 EST Pain Scale Intensity : 3 Maria Isabel Loredo RN - 09/18/2019 19:17 EST Image 4 - Images currently included in the form version of this document have not been included in the text rendition version of the form. documented in this encounter Plan of Treatment Not on file documented as of this encounter Visit Diagnoses Not on filedocumented in this encounter
--- OUTSIDE RECORDS SUMMARY | 2025-07-27 12:54 | XMS_ITS | Encounter Summary ---
Author Organization [employer] ([place], [place], [place], [place], [place]) Address [address] [place] [address] Care Team Providers Care Textile Broker Name Role Phone Unavailable Primary Care Provider Unavailabl e Encounter Details Date Type Department Care Team (Late st Contact Info) Description 09/18/2019 Transcribed Document [facility] [place] [facility] [place] [address] ProviderTami MD [address] [place] [address] Social History Tobacco Use Types Packs/Day Years Used Date Smoking Tobacco: Never Assessed Comments Unknown Sex and Gender Information Value Date Recorded Sex Assigned at Female 02/05/2022 4:56 PM CDT Legal Sex Female 6:56 PM CDT Gender Identity Female 02/05/2022 4:56 PM CDT Sexual Orientation Not on file documented as of this encounter Miscellaneous Notes * Cerner Conversion Note - Tami Maxwell MD - 09/18/2019 8:44 PM ROUTER TENDER [facility] [place] [address] CLEO CAPRIPool NEUMANN :1965 Visit Time:09/18/2019 Your Visit Summary Your Care Team Primary Provider: SOPHIE MURRIETA MD Secondary Provider: Your Diagnosis SCHWARTZ - Headache Headache Headache Weakness Medical Information You may obtain a copy of your Emergency Department visit from Medical Records by calling the hospital phone number listed above and asking to be directed to the Medical Records Department. If you had special tests, such as EKG???s or X-rays, the interpretation of your tests given to you by the Emergency Department Physician is a preliminary report. Some fractures and illnesses fail to show up on preliminary tests. These will be reviewed again and we will call you if there are any new suggestions. If your symptoms continue notify your physician. After you leave, you should follow the instructions provided. What to do next Follow-Up Appointments Follow Up with JOYA HERNANDEZ When Within 2 to 3 days Where: [address] Business (1) Allergies No Known Medication Allergies Immunizations This Visit No Immunizations Found Medications The home medications listed are only as accurate as the information you provided. Please continue taking all of your medications prescribed by your Primary Care Provider unless specifically told to change or discontinue the medication. Please direct any questions regarding your home medications to your Primary Care Provider. Take your medications faithfully. Do NOT skip medication. Do NOT stop taking medications without the direction of a physician. Carry a list of your medications with you at all times, and take this medication list with you to your first follow up visit. Report any side effects. Avoid herbal remedies unless discussed with your physician. As part of your treatment plan, your physician may have prescribed a limited course of a controlled substance. This medication may be given to help people with moderate or severe pain or for other medical conditions, but there are risks involved with treatment. Common side effects may include nausea, constipation, drowsiness, sweating, itching, dry mouth, and rash. More serious side effects may include cognitive and motor impairment, like problems with thinking, concentrating, alertness, and movement (e.g. slowed reflexes), and driving and operating heavy machinery can be dangerous. It is important for you to talk to your physician if you have these side effects or questions. These controlled substances can produce physical dependence and be habit-forming if taken for an extended period of time, which means that the body has gotten used to them and may experience withdrawal symptoms if they are abruptly stopped. Withdrawal symptoms can include runny nose, sweating, goose bumps, diarrhea, abdominal cramping, rapid heartbeat, difficulty sleeping, and nervousness. Please dispose of unused and medications per pharmacy guidance. Test Results Laboratory or Other Results This Visit (last charted value for your 09/18/2019 visit) General Chemistry 09/18/2019 7:31 PM Glucose POC2: 135 mg/dL -- Normal range between ( 70 and 110 ) Device Comment 1: Device Comment 1 Education Materials Migraine Headache A migraine headache is an intense, throbbing pain on one side or both sides of the head. Migraines may also cause other symptoms, such as nausea, vomiting, and sensitivity to light and noise. What are the causes? Doing or taking certain things may also trigger migraines, such as: ??? Alcohol. ??? Smoking. ??? Medicines, such as: ? Medicine used to treat chest pain (nitroglycerine). ? control pills. ? Estrogen pills. ? Certain blood pressure medicines. ??? Aged cheeses, chocolate, or caffeine. ??? Foods or drinks that contain nitrates, glutamate, aspartame, or tyramine. ??? Physical activity. Other things that may trigger a migraine include: ??? Menstruation. ??? . ??? Hunger. ??? Stress, lack of sleep, too much sleep, or fatigue. ??? Weather changes. What increases the risk? The following factors may make you more likely to experience migraine headaches: ??? Age. Risk increases with age. ??? Family history of migraine headaches. ??? Being . ??? Depression and anxiety. ??? Obesity. ??? Being a woman. ??? Having a hole in the heart (patent foramen ovale) or other heart problems. What are the signs or symptoms? The main symptom of this condition is pulsating or throbbing pain. Pain may: ??? Happen in any area of the head, such as on one side or both sides. ??? Interfere with daily activities. ??? Get worse with physical activity. ??? Get worse with exposure to bright lights or loud noises. Other symptoms may include: ??? Nausea. ??? Vomiting. ??? Dizziness. ??? General sensitivity to bright lights, loud noises, or smells. Before you get a migraine, you may get warning signs that a migraine is developing (aura). An aura may include: ??? Seeing flashing lights or having blind spots. ??? Seeing bright spots, halos, or zigzag lines. ??? Having tunnel vision or blurred vision. ??? Having numbness or a tingling feeling. ??? Having trouble talking. ??? Having muscle weakness. How is this diagnosed? A migraine headache can be diagnosed based on: ??? Your symptoms. ??? A physical exam. ??? Tests, such as CT scan or MRI of the head. These imaging tests can help rule out other causes of headaches. ??? Taking fluid from the spine (lumbar puncture) and analyzing it (cerebrospinal fluid analysis, or CSF analysis). How is this treated? A migraine headache is usually treated with medicines that: ??? Relieve pain. ??? Relieve nausea. ??? Prevent migraines from coming back. Treatment may also include: ??? Acupuncture. ??? Lifestyle changes like avoiding foods that trigger migraines. Follow these instructions at home: Medicines ??? Take qbrf-ttv-wprvruu and prescription medicines only as told by your health care provider. ??? Do not drive or use heavy machinery while taking prescription pain medicine. ??? To prevent or treat constipation while you are taking prescription pain medicine, your health care provider may recommend that you: ? Drink enough fluid to keep your urine clear or pale yellow. ? Take gazt-cug-wuzdegu or prescription medicines. ? Eat foods that are high in fiber, such as fresh fruits and vegetables, whole grains, and beans. ? Limit foods that are high in fat and processed sugars, such as fried and sweet foods. Lifestyle ??? Avoid alcohol use. ??? Do not use any products that contain nicotine or tobacco, such as cigarettes and e-cigarettes. If you need help quitting, ask your health care provider. ??? Get at least 8 hours of sleep every night. ??? Limit your stress. General instructions ??? Keep a journal to find out what may trigger your migraine headaches. For example, write down: ? What you eat and drink. ? How much sleep you get. ? Any change to your diet or medicines. ??? If you have a migraine: ? Avoid things that make your symptoms worse, such as bright lights. ? It may help to lie down in a dark, quiet room. ? Do not drive or use heavy machinery. ? Ask your health care provider what activities are safe for you while you are experiencing symptoms. ??? Keep all follow-up visits as told by your health care provider. This is important. Contact a health care provider if: ??? You develop symptoms that are different or more severe than your usual migraine symptoms. Get help right away if: ??? Your migraine becomes severe. ??? You have a fever. ??? You have a stiff neck. ??? You have vision loss. ??? Your muscles feel weak or like you cannot control them. ??? You start to lose your balance often. ??? You develop trouble walking. ??? You faint. This information is not intended to replace advice given to you by your health care provider. Make sure you discuss any questions you have with your health care provider. Document Released: 07/26/2006 Document Revised: 02/12/2017 Document Reviewed: 01/11/2017 [employer] Interactive Patient Education ?? 2019 [employer]. Emergency Awareness and Preventative Care STROKE is an EMERGENCY Every Minute Counts Act FAST and Check for these signs: FACE Does the face look uneven? ARM Does one arm drift down? SPEECH Does their speech sound strange? TIME Call at any sign of stroke Stroke Risk Factors Atrial Fibrillation (irregular heartbeat) Diabetes Family history of stroke Heart Disease Heavy alcohol use High Blood Pressure High Cholesterol Physical inactivity and obesity Smoking Cigarette Smoking The facts are clear, cigarette smoking will shorten your life. Smoking can cause many illnesses along the way. As a healthcare provider, we recommend that you stop smoking. Assistance with quitting is available by contacting 2-328-NTFZ-NOW. This is a free resource providing counseling, support, and referral. Or you may contact your personal physician. National Suicide Prevention Lifeline: The National Suicide Prevention Lifeline is a national network of local crisis centers that provides free and confidential emotional support to people in suicidal crisis or emotional distress 24 hours a day, 7 days a week. Don't Wait! Stop a Heart Attack Before it Starts What is a heart attack? A heart attack is damage or to a part of the heart from severely decreased or lack of blood flow to the heart. Over time, arteries can become narrow from the buildup of fat and cholesterol, which is called plaque. The plaque can rupture causing a blood clot to form. When the blood clot forms, the artery can become severely narrowed or completely blocked, causing a heart attack. Heart attack is the leading cause of in the [place]. 85% of muscle damage occurs within the first 2 hours. Delay in the recognition of heart attack symptoms increases the chances of . Know the early symptoms of a heart attack: Nausea Feeling of fullness in chest Jaw Pain Pain that travels down one or both arms Fatigue/being tired Anxiety Back Pain Chest pressure, squeezing, or discomfort Shortness of breath Sweating, or a cold sweat Feeling of impending doom There are unusual signs of a heart attack, too! Women, the elderly, and diabetics may present with atypical symptoms: Fainting/dizziness Weakness Confusion Risk Factors for a Heart Attack Some heart disease risk factors, such as age and family history, cannot be changed. Others, like smoking and lack of exercise, can be changed. Smoking High Cholesterol High Blood Pressure Family History Obesity Age Gender (Males are at higher risk) Lack of Exercise Diabetes Diet Stress Excessive Alcohol Intake If you or someone you know is experiencing the signs and symptoms of a heart attack, DON???T DELAY. Call immediately and seek help. If someone collapses, perform CPR! Do not attempt to drive if you are having symptoms of heart attack. Hands-Only CPR Why Hands-Only CPR? Hands-Only CPR has been shown to be as effective as conventional CPR for cardiac arrests that occur outside of a hospital. Survival depends on immediately receiving CPR from someone nearby. How do you perform Hands-Only CPR? There are two easy steps: Call if you see a teen or adult collapse Push hard and fast in the center of the chest at a beat of 100 beats per minute. Save a life! 4 WAYS TO GET AHEAD OF SEPSIS SEPSIS is a MEDICAL EMERGENCY. Time matters! Infections put you and your family at risk for a life-threatening condition called sepsis. Sepsis is the body's extreme response to an infection. It is life-threatening, and without timely treatment, sepsis can rapidly lead to tissue damage, organ failure, and . Sepsis happens when an infection you already have-in your skin, lungs, urinary tract or somewhere else-triggers a chain reaction throughout your body. 1 PREVENT INFECTIONS Take good care of chronic conditions. Talk to your doctor about getting the recommended vaccines. 2 PRACTICE GOOD HYGIENE Wash your hands frequently. Keep cuts or open sores clean and covered until they are healed. 3 KNOW THE SYMPTOMS Confusion or disorientation Shortness of breath High heart rate Fever, shivering, or feeling very cold Extreme pain or discomfort Clammy or sweaty skin 4 ACT FAST Get medical care IMMEDIATELY if you suspect sepsis or if you have an infection that is not getting better or is getting worse. To learn more about sepsis and how to prevent infections, visit www.cdc.gov/sepsis. The examination and treatment you have received in the Emergency Department has been done to provide an appropriate evaluation and stabilizing treatment on an emergency basis only. Given the limited resources, it is not meant to be a substitute for complete medical care. The follow-up doctor you named will receive a copy of your records and all test reports. IT IS IMPORTANT THAT YOU SCHEDULE A FOLLOW-UP APPOINTMENT AND ARE RE-EVALUATED. You should report any new complaints, symptoms, or remaining problems at that time. IT IS IMPOSSIBLE FOR THE EMERGENCY DEPARTMENT TO RECOGNIZE AND TREAT ALL ELEMENTS OF INJURY OR ILLNESS IN A SINGLE VISIT. If you have been referred to a specialist physician, it means that we believe you may have a condition that requires the expertise of a specialist. These physicians work in partnership with the hospital and have agreed to see referred patients in their office for further evaluation. KEEP IN MIND THAT THE SPECIALIST HAS HIS/HER OWN OFFICE POLICIES WHICH MAY REQUIRE PROPER INSURANCE OR PAYMENT UP FRONT BEFORE THE SPECIALIST WILL SEE YOU. It is your responsibility to call the specialist physician to make an appointment. We do not have the ability to refer patients to specialists/physicians that work with specific insurance companies. Please be advised that all financial charges or billing practices are determined by that practice, not the hospital. If your insurance company requires that you see a specialist from their approved list, it is your responsibility to contact your insurance company to make those arrangements. It is also your responsibility to follow any other requirements of your insurance company necessary to obtain coverage for claims submitted. We will bill your insurance; however, you are responsible today for any co-pay amounts. You will receive a separate bill for any services you may have received including: emergency, radiology, or pathology physicians. Patient Name:CAPRI SANTIAGO I have received this information and was given the opportunity to ask questions. Patient/Regulatory Affairs Assistant Name: Patient/Regulatory Affairs Assistant Signature: Relationship to Patient: Clinician/Hospital Regulatory Affairs Assistant Signature: Please Provide a Telephone Number Where You Can Be Reached: Is it Permissible To Leave a Message? Date: documented in this encounter Plan of Treatment Not on file documented as of this encounter Visit Diagnoses Not on filedocumented in this encounter
--- OUTSIDE RECORDS SUMMARY | 2025-07-27 12:54 | XMS_ITS | Clinical Summary ---
Author Organization [employer] ([place], [place], [place], [place], [place]) Address [address] [place] [address] Care Team Providers Care Utility Inspector Name Role Phone Unavailable Primary Care Provider Unavailabl e Social History Tobacco Use Types Packs/Day Years Used Date Smoking Tobacco: Never Assessed Comments Unknown Sex and Gender Information Value Date Recorded Sex Assigned at Female 02/05/2022 4:56 PM CDT Legal Sex Female 6:56 PM CDT Gender Identity Female 02/05/2022 4:56 PM CDT Sexual Orientation Not on file Plan of Treatment Not on file
--- OUTSIDE RECORDS SUMMARY | 2025-07-27 12:54 | XMS_ITS | Encounter Summary ---
Author Organization [employer] ([place], [place], [place], [place], [place]) Address [address] [place] [address] Care Team Providers Care Charging Car Operator Name Role Phone Unavailable Primary Care Provider Unavailabl e Encounter Details Date Type Department Care Team (Late st Contact Info) Description 09/18/2019 Transcribed Document [facility] [place] [facility] [place] [address] ProviderTami MD [address] [place] [id number] Social History Tobacco Use Types Packs/Day Years [...] Conversion Note - Historical ProviderMD - 09/18/2019 9:03 PM [facility] ED Discharge Entered On: 09/18/2019 21:04 EST Performed On: 09/18/2019 21:03 EST by Zackery Sanchez RN Discharge Process Patient Disposition : Discharge Personal Belongings With Patient : Yes Patient Education Completed : Yes Teaching Evaluation : Verbalizes understanding IV Discontinued : Yes Nursing Documentation Completed : Yes Zackery Sanchez RN - 09/18/2019 21:03 EST ED Discharge Discharge To : Home with ambulatory/outpatient follow-up Mode Of Departure : Ambulatory Discharge Instructions Reviewed With, Opportunity For Questions Given : Patient Prescriptions Given to Patient : No Zackery Sanchez RN - 09/18/2019 21:03 EST Electronically signed by Hugo [facility] Conversion Associate Software Development Engineer Cerner at 11/25/2022 7:38 AM CDT documented in this encounter Plan of Treatment Not on file documented as of this encounter Visit Diagnoses Not on filedocumented in this encounter
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
== END 2025-07-27 23:59 | disposition home or self-care (01) ==
LOC: RAD 12:51
PROVIDERS: PCP Nurse Practitioner Family; Visit Provider Physician Assistant
DX: Z12.31 Encounter for screening mammogram for malignant neoplasm of breast (principal); Z12.2 Encounter for screening for malignant neoplasm of respiratory organs; R92.323 Mammographic fibroglandular density, bilateral breasts; F17.210 Nicotine dependence, cigarettes, uncomplicated; R91.8 Other nonspecific abnormal finding of lung field; J84.10 Pulmonary fibrosis, unspecified
CPT/HCPCS: 71271; 77063; 77067